=== PATIENT | female | born 1960 | race Caucasian/White ===

== ENCOUNTER 2020-01-06 13:23 | Outpatient (CLI) | payer BC ==
[2020-01-06 14:26] LABS: THYROID STIMULATING HORMONE < 0.08 uIU/mL (0.34-5.60)
[2020-01-06 14:28] LABS: FREE T3 3.41 pg/mL (2.5-3.9); FREE T4 (FREE THYROXINE) 1.03 ng/dL (0.58-1.64)
== END 2020-01-06 13:24 | disposition home or self-care (01) ==
LOC: LAB 13:23
PROVIDERS: ATTEND Family Medicine
DX: B34.9 Viral infection, unspecified (principal)
CPT/HCPCS: 36415; 84439; 84443; 84481; 84482

== ENCOUNTER 2020-03-17 15:56 | Outpatient (CLI) | payer BC ==
[2020-03-17 16:45] LABS: THYROID STIMULATING HORMONE 1.79 uIU/mL (0.34-5.60)
[2020-03-17 16:46] LABS: FREE T3 3.11 pg/mL (2.5-3.9)
[2020-03-17 16:47] LABS: FREE T4 (FREE THYROXINE) 1.05 ng/dL (0.58-1.64)
== END 2020-03-17 15:57 | disposition home or self-care (01) ==
LOC: LAB 15:56
PROVIDERS: ATTEND Family Medicine
DX: B34.9 Viral infection, unspecified (principal)
CPT/HCPCS: 36415; 84439; 84443; 84481

== ENCOUNTER 2020-10-08 15:53 | Outpatient (CLI) | payer BC ==
[2020-10-08 16:34] LABS: THYROID STIMULATING HORMONE 0.28 uIU/mL (0.34-5.60)
[2020-10-08 16:36] LABS: FREE T3 3.18 pg/mL (2.5-3.9); FREE T4 (FREE THYROXINE) 1.04 ng/dL (0.58-1.64)
== END 2020-10-08 15:54 | disposition home or self-care (01) ==
LOC: LAB 15:53
PROVIDERS: ATTEND Family Medicine
DX: B34.9 Viral infection, unspecified (principal)
CPT/HCPCS: 36415; 84439; 84443; 84481

== ENCOUNTER 2021-04-06 11:02 | Outpatient (CLI) | payer BC ==
[2021-04-06 11:38] LABS: BASOPHILS # (AUTO) 0.1 10^3/uL (0.0-0.1); BASOPHILS % (AUTO) 0.9 %; EOSINOPHILS % (AUTO) 0.5 %; HCT - HEMATOCRIT 40.8 % (37.0-47.0); HGB - HEMOGLOBIN 13.7 g/dL (12.0-16.0); LYMPHOCYTES # (AUTO) 1.2 10^3/uL (1.5-3.5); LYMPHOCYTES % (AUTO) 21.1 %; MEAN CORPUSCULAR HEMOGLOBIN 32.5 pg (27.0-31.0); MEAN CORPUSCULAR HGB CONC 33.6 g/dL (32.0-36.0); MEAN CORPUSCULAR VOLUME 96.7 fL (81.0-99.0); MEAN PLATELET VOLUME 10.3 fL (7.9-10.8); MONOCYTES # (AUTO) 0.4 10^3/uL (0.0-1.0); MONOCYTES % (AUTO) 7.7 %; NEUTROPHILS # (AUTO) 3.9 10^3/uL (1.5-6.6); NEUTROPHILS % (AUTO) 69.4 %; PLT - PLATELET COUNT 224 10^3/uL (130-450); RED BLOOD COUNT 4.22 10^6/uL (4.20-5.40); RED CELL DISTRIBUTION WIDTH 13.6 % (12.0-15.0); WHITE BLOOD COUNT 5.6 x10^3/uL (4.8-10.8)
[2021-04-06 12:10] LABS: % IRON SATURATION 36 % (20-50); IRON 166 ug/dL (28-170); TOTAL IRON BINDING CAPACITY 455 ug/dL (250-450); TRANSFERRIN 325 mg/dL (192-382)
[2021-04-06 12:11] LABS: THYROID STIMULATING HORMONE 1.11 uIU/mL (0.34-5.60)
[2021-04-06 12:14] LABS: FREE T3 3.43 pg/mL (2.5-3.9)
[2021-04-06 12:15] LABS: FREE T4 (FREE THYROXINE) 1.11 ng/dL (0.58-1.64)
[2021-04-06 12:19] LABS: FERRITIN 77.9 ng/mL (11.0-306.8)
== END 2021-04-06 11:03 | disposition home or self-care (01) ==
LOC: LAB 11:02
PROVIDERS: ATTEND Internal Medicine
DX: D80.3 Selective deficiency of immunoglobulin G [IgG] subclasses (principal); D47.09 Other mast cell neoplasms of uncertain behavior; E03.8 Other specified hypothyroidism; R79.89 Other specified abnormal findings of blood chemistry; R53.83 Other fatigue; M25.50 Pain in unspecified joint; G62.9 Polyneuropathy, unspecified; R41.9 Unspecified symptoms and signs involving cognitive functions and awareness; R06.02 Shortness of breath; R20.8 Other disturbances of skin sensation; H93.19 Tinnitus, unspecified ear; R26.81 Unsteadiness on feet; I49.8 Other specified cardiac arrhythmias
CPT/HCPCS: 36415; 81599; 82607; 82728; 82784; 82785; 82787; 83540; 84439; 84443; 84466; 84481; 85025

== ENCOUNTER 2023-08-18 15:14 | Outpatient (CLI) | payer BC | END 2023-08-18 15:15 | disposition home or self-care (01) | LOC: LAB.N 15:14 | PROVIDERS: ATTEND Internal Medicine | DX: D80.8 Other immunodeficiencies with predominantly antibody defects (principal) | CPT/HCPCS: 81599 ==